=== PATIENT | male | born 1975 | race Caucasian/White ===

== ENCOUNTER 2020-02-27 07:59 | Outpatient (CLI) | payer BC, SELFPAY ==
[2020-02-27 08:31] LABS: Hemoglobin A1C 6.2 % (<5.7)
== END 2020-02-27 08:00 | disposition home or self-care (01) ==
PROVIDERS: PCP Internal Medicine; Visit Provider Internal Medicine
DX: E11.9 Type 2 diabetes mellitus without complications (principal)
CPT/HCPCS: 36415; 83036

== ENCOUNTER 2020-05-31 09:59 | Outpatient (CLI) | payer BC, SELFPAY ==
[2020-05-31 10:43] LABS: SARS-CoV-2 Ag Positive (Negative)
== END 2020-05-31 10:00 | disposition home or self-care (01) ==
LOC: CHSLAB 10:01
PROVIDERS: PCP Internal Medicine; Visit Provider Internal Medicine
DX: U07.1 COVID-19 (principal); R50.9 Fever, unspecified
CPT/HCPCS: 87426